=== PATIENT | male | born 1985 | race Caucasian/White ===

== ENCOUNTER 2025-02-24 09:54 | Outpatient (REF) | payer OTHER, SELFPAY ==
[2025-02-24 15:30] LABS: Alanine Aminotransferase 130 U/L (0-40); Albumin Level 4.8 g/dL (3.5-5.0); Alkaline Phosphatase 67 U/L (39-117); Anion Gap 12 (12-20); Aspartate Amino Transferase 73 U/L (5-37); Blood Urea Nitrogen 12 mg/dL (9-16); Calcium 9.5 mg/dL (8.4-10.2); Carbon Dioxide 23 mmol/L (22-29); Chloride 108 mmol/L (96-108); Cholesterol 274 mg/dL (<200); Estimated Glomerular Filt Rate > 60; HDL Cholesterol 35 mg/dL (>40); Potassium 4.4 mmol/L (3.3-5.1); Sodium 139 mmol/L (135-145); Total Protein 7.2 g/dL (6.5-8.0); Triglycerides 622 mg/dL (<150)
[2025-02-24 15:59] LABS: Folate 7.9 ng/mL (> or = 4.0); Vitamin B12 782 pg/mL (200-900)
== END 2025-02-24 09:55 | disposition home or self-care (01) ==
LOC: HO.WFDLDS 09:54
PROVIDERS: PCP Nurse Practitioner Family; Visit Provider Nurse Practitioner Family
DX: Z00.00 Encounter for general adult medical examination without abnormal findings (principal); Z13.31 Encounter for screening for depression; Z13.39 Encounter for screening examination for other mental health and behavioral disorders; Z13.1 Encounter for screening for diabetes mellitus; Z13.6 Encounter for screening for cardiovascular disorders
CPT/HCPCS: 36415; 80053; 80061; 82306; 82607; 82746; 83036; 96127

== ENCOUNTER 2025-02-24 09:54 | Outpatient (AMB) | payer BC, SELFPAY ==
--- NOTE | 2025-02-24 09:58 | A.OFFPC_ITS ---
Vital Signs 02/24/25 10:04 Height 5 ft 7 in Weight 213 lb 8 oz BMI 33.4 BP 120/70 Blood Pressure Location Lt brachial Position Sitting Respiration 12 Pulse 89 Pulse Source Pulse Oximeter Temp 97.3 F Temp Source Oral Pulse Oximetry (%) 99 Oxygen Delivery Method Room Air Intake Visit Reasons: CPE Intake Note: New patient to [facility] and cpe. Super[employer] Required: No Allergies No Known Allergies Allergy (Verified 02/24/25 10:09) Medication List - Last Reviewed 02/24/25 by Laz Gipson MA bupropion HCl XL 150 mg PO QAM dextroamphetamine-amphetamine 10 mg 1 tab PO BID quetiapine ER 50 mg PO BEDTIME quetiapine ER 200 mg PO BEDTIME Tobacco use date assessed: 02/24/25 Dental Screening Dental Screen Date: 02/24/25 Did you have a dental visit in the last 12 months?: No Did you have a dental problem in the last 6 months where you did not have access to dental care?: No Was dental information given to patient?: Yes HPI HPI Comments History of Present Illness Details 39 y/o M with ADHD, obesity, Bipolar 2, fhx colon ca (MGM) Surgery: none Family: MGM cancer colon & DM CKD cirrhosis HTN( ); Mom w/ cardiac arrythmia and HLD; Dad HLD and asthma; MGF heart attack/stroke; PGF asthma, prostate ca; PGM arthritis; 2 younger sisters alive and well; 2 boys and 1 girl alive well (17, 15, 10). 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 - He is currently prescribed quetiapine for this condition. - His medications are managed by a cmi nikki at [facility], with whom he has contact approximately every three months. - He reports his symptoms are well-contr olled with the current medication regimen. Attention-Deficit/Hyperactivity Disorder (ADHD): - The patient has a history of ADHD. - He is currently taking amphetamine (Ad derall) and bupropion for this condition. - These medications are prescribed by [place] [facility] provider. Obesity: - The patient has a past medical history of obesity with a BMI of 33.4. Past Medical History - Bipolar II Disorder, managed with quet iapine. - Attention-Deficit/Hyperactivity Disord er (ADHD), managed with amphetamine and bupropion. - Obesity, with a BMI of 33.4. - History of sometimes feeling weak or f aint with blood draws. - No known allergies to medications. Past Surgical History - The patient denies any history of surg eries. Family History - Maternal grandmother: ; had a history of colon cancer, thyroid cancer, diabetes, kidney disease, cirrhosis, and high blood pressure. - Mother: History of arrhythmia and high cholesterol. - Father: History of high cholesterol an d asthma. - Maternal grandfather: Alive; history o f a heart attack or stroke. - Paternal grandfather: Alive; history o f asthma and prostate cancer. - Paternal grandmother: Alive; history o f arthritis. - Siblings: Two younger sisters who are healthy. 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 - Family Status: He lives with his and three children, ages 17, 15, and 10. Review of Systems - Constitutional: Reports occasionally f eeling weak or faint with blood draws. - Psychiatric: Reports bipolar disorder is well-controlled with medication. - Eyes: Denies any problems or concerns with vision and does not wear corrective lenses. - Skin: Denies any concerns with his ski n. - Gastrointestinal: Reports normal bowel function. - Genitourinary: Reports normal bladder function and denies any testicular problems or concerns. - Musculoskeletal: Denies any issues wit h his feet. - Allergic/Immunologic: Denies any medic ation allergies. Physical Exam General: Well developed, well nourished, in no acute distress. Appears stated age. Head: Normocephalic, atraumatic. Eyes: Pupils are equal, round and reactive to light and accommodation. Conjunctivae are clear. Scleras nonicteric bilat. Vision grossly normal. Ears: TMs clear AU, EACS WNL Nose: Patent, without discharge. Neck: No carotid bruit bilat. Supple, no adenopathy or thyromegaly. Breast: Edu on SBE Lungs: Clear to auscultation bilaterally. No rales, rhonchi or wheeze noted. Good air flow in all siegel. Heart: Regular rate and rhythm. No murmurs, click, rubs or gallops are noted. Abdomen: Bowel sounds present in all quadrants. The abdomen is soft, nontender, with no masses or organomegaly noted. No hernias are noted. : Deferred. Reviewed ILA & recommendations Pulses: Peripheral pulses are equal and palpable bilaterally. Extremities: No clubbing, cyanosis nor edema is noted. Neurologic: Gait and station normal. Cranial Nerves 2-12 intact. Motor strength grossly symmetrical and intact. No sensory loss. Balance normal. Skin: No rashes, ulcers, or lesions noted. Turgor is good. Skin color is good. Hair and nails are without abnormalities. Psych: Normal eye contact, affect and mood appropriate, and normal interactions. Patient is alert and appropriate to context. Results - Immunizations: Tdap vaccination docume nted in 2018. - Labs: Bloodwork was ordered but result s are pending. Medical Decision Making The patient is a 39-year-old male with a history of bipolar II disorder, ADHD, and obesity, who presents to [facility] care after a 10-year lapse. His psychiatric conditions are stable on his current medication regimen, which is managed by an outside provider. The primary focus of this visit is health maintenance and preventative screening. Given his family history of cardiovascular disease, diabetes, and cancer, along with his personal history of obesity, screening for hyperlipidemia and diabetes is warranted. Routine wellness labs, including a complete metabolic panel and vitamin levels, are also indicated. His Tdap immunization is current. Physical examination was unremarkable. The plan is to review lab results via the patient portal and schedule a follow-up in one year, unless abnormal results necessitate an earlier visit. The patient was instructed on the use of the [employer] jatinder for future communication. Plan Health Maintenance - Recommended and ordered laboratory scr eening, including a cholesterol panel, diabetes screen, kidney and liver function tests, vitamin B12, and vitamin D. - Lab results will be communicated via [employer] patient portal. - Plan to follow up in one year for an a nnual physical, or sooner if lab results are abnormal. - Confirmed Tdap vaccination is up to da te (last administered in 2018). - Offered influenza vaccination. - Instructed the patient on enrolling in and using the [employer] patient portal for communication and accessing results. 1. Bipolar Ii Disorder - The patient reports that his symptoms are well-controlled with his current medication, quetiapine. - He [facility]. - No changes were made to his psychiatri c medication regimen at this visit. 2. Attention-Deficit/Hyperactivity Disor nikki (Adhd) - The patient is managed on amphetamine and bupropion. - He will continue to follow with his [facility] provider for medication management. - No changes were made to his medication at this visit. 3. Obesity - The patient has a history of obesity w ith a BMI of 33.4. - General health screening labs were ord ered, which will provide insight into metabolic health. Patient Instructions - Please stop at the front desk team member to sched ule your next appointment for a physical in one year. - After checking out, please go to the l ab to have your blood drawn for the tests we discussed. - To help with your discomfort, please l et the laborer drying department know that you prefer not to look at the needle or blood during the draw. - You will receive an email to sign up f or our patient portal, called [employer]. Please open the email and follow the steps to create your account. This will be our main way of communicating. - Your lab results will be sent to you t hrough the [employer] portal. We will let you know if you need to come back sooner than one year. - If you need your work form filled out, you can upload it as a file to the patient portal. - Use the messaging feature in the [employer] jatinder to contact our office with any questions, to request an appointment, or if you feel sick. - RTO 1 year CPE sooner PRN Consent The patient verbally consented to undergoing blood tests for cholesterol and diabetes screening after a discussion of the rationale for testing. Patient was informed and verbally consented to the use of an ambient scribe for clinic note documentation during this visit. An additional 15 minutes was spent addressing the problem(s) noted at todays visit. This includes time spent before the visit reviewing the chart, time spent during the visit, and time spent after the visit on documentation reviewing laboratory results, diagnostic imaging, medications, performing a medically necessary evaluation, counseling on diagnoses, care coordination, ordering appropriate tests, ordering appropriate medications, review of tests performed by other providers, reporting test results with the patient, communication with other healthcare providers. [facility] Medical History (Updated 02/24/25 @ 10:28 by Tootie Serrato [facility]) Anxiety and depression Asthma Bipolar 1 disorder GERD (gastroesophageal reflux disease) High blood cholesterol NAFLD (nonalcoholic fatty liver disease) Surgical History (Updated 02/24/25 @ 10:08 by Laz Gipson MA) No pertinent past surgical history Family History (Updated 02/24/25 @ 10:10 by Laz Gipson MA) Father Asthma Paternal Grandfather Asthma Cancer Maternal Grandmother HTN (hypertension) High blood cholesterol Diabetes Cancer Maternal Grandfather HTN (hypertension) High blood cholesterol Mother High blood cholesterol Social History (Updated 02/24/25 @ 10:07 by Laz Gipson MA) Household Members: Spouse and Children Both parents involved: No Caregiver staying overnight: Yes Housing: Apartment Are you a primary skin care specialist to a significant other at home: Yes Do you presently have visiting nurse or other home services: No 75 years or older and lives alone: No Alcohol intake: current Alcohol intake frequency: a few times a month Patient Tobacco Use Status: Never used Tobacco e-Cigarette/Vaping Use: Never Used Second Hand Smoke Exposure: No service: No Current occupational status: employed 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 1. Little interest or pleasure in doing things: not at all 2. Feeling down, depressed, or hopeless: not at all 3. Trouble falling or staying asleep, or sleeping too much: not at all 4. Feeling tired or having little energy: not at all 5. Poor appetite or overeating: not at all 6. Feeling bad about yourself - or that you are a failure or have let yourself or your family down: not at all 7. Trouble concentrating on things, such as reading the newspaper or watching television: not at all 8. Moving or speaking so slowly that other people could have noticed. Or the opposite - being so fidgety or restless that you have been moving around a lot more than usual: not at all 9. Thoughts that you would be better off or of hurting yourself in some way: not at all Total score: 0 Depression Screening Interpretation: Negative Depression Screening Done: Yes 19374 - PHQ-9 Billing: Yes Source: Developed by Drs. Ricardo Hendricks, Yumiko Pozo, Fredy Livingston and colleagues, with an educational chelsea from [employer]. Thrive Questionnaire Date Thrive assessed: 02/24/25 I am a: Patient What is your living situation today?: I have a steady place to live Within the past 12 months, did the food you bought not last and you didn't have the money to get more?: Never true Within the past 12 months, did you worry whether your food would run out before you got money to buy more?: Never true Do you have trouble paying for medicines?: No Do you have trouble getting transportation to medical appointments?: No Do you have trouble paying your heating and electricity bill?: No Do you have trouble taking care of your child, family member or friend?: No Do you have trouble with day-to-day activities such as bathing, preparing meals, shopping, managing finances, etc.?: No Are you currently unemployed and looking for a job?: No Are you interested in more education?: Yes Please select the resources that you would like help with: None Currently or been in a relationship where the following occur: No concerns reported THRIVE Score: 0 AUDIT C Alcohol Use Questionnaire (AUDIT-C) 1. How often do you have a drink containing alcohol?: Monthly or less 2. How many drinks containing alcohol do you have on a typical day when you are drinking?: 1 or 2 3. How often do you have six or more drinks on one occasion?: Less than monthly Total Score: 2 Score Reviewed/Action Taken: Yes LUISA-7 AMB Questionnaire LUISA-7 Date LUISA - 7 assessed: 02/24/25 Feeling nervous, anxious, or on edge: 1 = Several days Not being able to stop or control worryin = Several days Worrying too much about different things: 1 = Several days Trouble relaxin = Several days Being so restless that it is hard to sit still: 0 = Not at all Becoming easily annoyed or irritable: 1 = Several days Feeling afraid as if something awful might happen: 0 = Not at all Total LUISA-7 score (0-4 normal; 5-9 mild; 10-14 moderate; 15-21 severe): 5 Source: Developed by Drs. Ricardo Hendricks, Yumiko Pozo, Fredy Livingston and colleagues, with an educational chelsea from [employer]. LUISA-7 Assessment Billing LUISA-7 Assessment Tool: LUISA-7 Assessment 38902 Physical exam (Primary Care) Vital Signs: Last Vital Signs Temp 97.3 F 02/24/25 10:04 Pulse 89 02/24/25 10:04 Resp 12 02/24/25 10:04 BP 120/70 02/24/25 10:04 Pulse Ox 99 02/24/25 10:04 Oxygen Delivery Method Room Air 02/24/25 10:04 BMI result Body Mass Index 33.4 BMI Assessment/Plan discussion: High BMI High, discussed plan: lifestyle Tobacco/Smoking Status: Tobacco use Status Tobacco use date assessed 02/24/25 02/24/25 10:01 Patient Tobacco Use Status Never used Tobacco 02/24/25 10:07 e-Cigarette/Vaping Use Never Used 02/24/25 10:07 PHQ-9: PHQ-9 Score PHQ-9: Total score 0 02/24/25 10:01 Depression Screening Interpretation: Negative Thrive Assessment: Date of Thrive Assessment Date Thrive assessed 02/24/25 02/24/25 10:01 Currently or been in a relationship where the following occur: No concerns reported Coding Level of Care Code New Pt Level 2 (62131) New Pt Prev Care 18-39yr(37461 Diagnoses Encounter to establish care with new provider Z76.89 Attention deficit hyperactivity disorder (ADHD), predominantly inattentive type F90.0 Attention deficit-hyperactivity disorder type: predominantly inattentive Bipolar 2 disorder F31.81 Obesity (BMI 30-39.9) E66.9 Influenza vaccination declined Z28.21 Family history of colon cancer Z80.0 Family history of prostate cancer Z80.42 Adult general medical exam Z00.00 Laboratory exam ordered as part of routine general medical examination Z00.00 Additional Codes LUISA-7 Assessment Billing - LUISA-7 Assessment Tool: LUISA-7 Assessment 14907 ([id number]) PHQ-9 - 16275 - PHQ-9 Billing: Yes ([id number]) Assessment & Plan Assessment & Plan (1) Encounter to establish care with new provider: Code(s): Z76.89 - Persons encountering health services in other specified circumstances (2) ADHD: Comment: managed by outside prescriber Code(s): F90.9 - Attention-deficit hyperactivity disorder, unspecified type Category: Medical Qualifiers: Attention deficit-hyperactivity disorder type: predominantly inattentive Qualified Code(s): F90.0 - Attention-deficit hyperactivity disorder, predominantly inattentive type (3) Bipolar 2 disorder: Comment: managed by outside prescriber Code(s): F31.81 - Bipolar II disorder Category: Medical (4) Obesity (BMI 30-39.9): Code(s): E66.9 - Obesity, unspecified Category: Medical (5) Influenza vaccination declined: Onset Date: ~02/24/25 Code(s): Z28.21 - Immunization not carried out because of patient refusal Category: Medical (6) Family history of colon cancer: Code(s): Z80.0 - Family history of malignant neoplasm of digestive organs Category: Medical (7) Family history of prostate cancer: Code(s): Z80.42 - Family history of malignant neoplasm of prostate Category: Medical (8) Adult general medical exam: Onset Date: ~02/24/25 Code(s): Z00.00 - Encounter for general adult medical examination without abnormal findings Category: Medical (9) Laboratory exam ordered as part of routine general medical examination: Code(s): Z00.00 - Encounter for general adult medical examination without abnormal findings Category: Medical Plan . Orders: Orders Hemoglobin A1c Today Z00.00 - Encounter for general adult medical examination without abnormal findings Comprehensive Met. Panel Today Z00.00 - Encounter for general adult medical examination without abnormal findings Vitamin B12 and Folate Today Z00.00 - Encounter for general adult medical examination without abnormal findings Vitamin D 25-OH Total Today Z00.00 - Encounter for general adult medical examination without abnormal findings Lipid Panel Today Z00.00 - Encounter for general adult medical examination without abnormal findings Patient Instructions: Walk-In Care (Urgent Care): We Make it Easy Walk-in for urgent medical issues such as: ? Seasonal Allergies ? Insect Bites ? Cough ? Diarrhea ? Acute Asthma Attacks ? Back, Knee or Joint Pain ? Ear Infection ? Fever without a Rash ? Headaches ? Nausea ? [place] Eye, Rash or Skin Irritation ? Sore Throat ? Sports Physicals ? Vomiting Most insurances are accepted. Patients do not need to be part of the [facility] to seek care at the walk-in clinic. Locations [address], [place] Open Monday through Monday 8am-5pm *Hours may vary due to staffing availability. To confirm Walk-In Care hours please call. [address] [place] [address] ? [phone] [facility] Walk-In Care in [place] provides services to ages 18 and over. Open Monday-Monday: 7 a.m. to 5 p.m. and Monday: 9 a.m. to 3 p.m.* *Hours may vary due to staffing availability. To confirm Walk-In Care hours in [place], please call [phone]. [address] [place] [address] ? [phone] [facility] Walk-In Care in [place] provides services to ages 12 and over. Open Monday-Monday: 8 a.m. to 5 p.m. Hours may vary due to staffing availability. To confirm Walk-In Care hours in [place], please call [phone]. LABORATORY SERVICES: [facility] Lab ? Primary Location [address] [place] [address] Monday through Monday 6:00 AM ? 5:00 PM Monday 7:00 AM ? 11:00 AM* [phone] The [facility] Lab is centrally located near the front entrance of the [facility] for easy outpatient access. Convenient parking is provided for outpatients. *Hours may vary due to staffing availability. To confirm Laboratory hours for any location, please call [phone]. Offsite Location For your convenience, we offer offsite laboratory draw stations at the following locations: [address] [place] [address] ? [address], [address] Monday through Monday 7:30 AM ? 1:00 PM* [phone] *Hours may vary due to staffing availability. To confirm Laboratory hours for any location, please call [phone]. [place] ? [address] Monday through Monday 6:00 AM ? 3:30 PM* Monday 6:30 AM ? 3 PM* [phone] *Hours may vary due to staffing availability. To confirm Laboratory hours for any location, please call [phone]. [address] [facility] Monday through Monday 7:30 AM ? 4:00 PM* [phone] *Hours may vary due to staffing availability. To confirm Laboratory hours for any location, please call [phone] [facility] Monday through 9:00 AM ? 4:00 PM* *Hours may vary due to staffing availability. To confirm Laboratory hours for any location, please call [phone]. Appointments are not necessary. Walk-ins are welcome. Like all the departments throughout the [facility], our Lab undergoes freque nt reviews to ensure the quality and accuracy of test results, and our staff takes special pride in its status as a nationally accredited facility. Patient Portal: [facility] ONE PATIENT. ONE RECORD. BETTER CARE. [facility] has a fully integrated, cutting- edge mobile electronic health information system that has revolutionized the way we care for our patients and manage our organization. This system improves communication and coordination enabling us to provide safe, higher-quality care, and an overall positive experience for staff and patients. Our first priority, as always, is to deliver the highest quality care possible. The system is running in the background supporting that priority. This portal is for all [facility] services and practices. If you are experiencing any technical difficulties with enrolling or logging into the Patient Portal please complete the [facility] Patient Portal Technical Support Form. [facility] now offers a new secure on-line interactive tool for patients to review their health information ? ?Patient Portal. This interactive web portal will enable patients and their families to take an active role in their care by providing easy, secure access to their health information via the internet. The Patient Portal provides patients with instant access to their health information, including laboratory results, medications, allergies, demographic information, visit history, and more. In addition to managing their own care, parents and health care proxies with authorized consent will appreciate the ability to access the records of those individuals for whom they provide care. Please note: if you wish to gain access (Proxy) to another patient?s portal, you will be required to come to the Medical Records Department in person at [facility]. Both the patient giving proxy access and the proxy will need to provide photo identification and complete the appropriate authorization. The Patient Portal also allows track their appointments online. The [facility] Patient Portal also saves patients time by allowing them to submit updates to their demographic and contact information prior to their visits. Portal email notifications will also alert patients to any new activity on their portal, such as test results and new appointments. In order to initially enroll in the [facility] Patient Portal, you will need to enter some required information including the following: * your [facility] Medical Record number * your personal home email address * name * date of Please note: In order to enroll in the [facility] Patient Portal, we need to have your email address on file in your electronic medical record. ?The email address needs to be specific for one person (yourself) in order for your Portal enrollment to be successful. ?You can update your email address in person with our Registration staff when you are registering for a hospital visit. ?Otherwise, you will need to come to the Health Information Management (Medical Records) Department at [facility]. ?We are open from Monday ? Monday from 7:30 a.m. ? 4:30 p.m. ?You will be required to present a photo id. Once you have successfully enrolled in the Patient Portal, you will receive a one-time user id and password for the Portal, sent to your email address. ?This will allow you to log into the Patient Portal within 99 hrs and reset your own logon id and password, and define personal security questions. ?Once your permanent login and password have been set, you can log into the [facility] Patient Portal at any time via the blue button above or from the Portal Logon button on any page of the [facility] website. [facility] and [facility] encourage all of our patients to enroll in Patient Portal as it presents a valuable opportunity for patients and their families to actively participate in their care and stay healthy Welcome to [facility]. ?We look forward to working with you. Health screenings for men You should visit your health care provider regularly, even if you feel healthy. The purpose of these visits is to: Screen for medical issues Assess your risk for future medical problems Encourage a healthy lifestyle Update vaccinations and other preventive care services Help you get to know your provider in case of an illness Information Even if you feel fine, you should still see your provider for regular checkups. These visits can help you avoid problems in the future. For example, the only way to find out if you have high blood pressure is to have it checked regularly. High blood sugar and high cholesterol level also may not have any symptoms in the early stages. Simple blood tests can check for these conditions. There are specific times when you should see your provider or receive specific health screenings. The [place] Preventive Services Task Force publishes a list of recommended screenings. Below are screening guidelines for men ages 40 to 64. BLOOD PRESSURE SCREENING Have your blood pressure checked at least once every year. Watch for blood pressure screenings in your area. Ask your provider if you can stop in to have your blood pressure checked. Ask your provider if you need your blood pressure checked more often if: You have diabetes, heart disease, kidney problems, or are overweight or have certain other health conditions You have a first-degree relative with high blood pressure You are Black Your blood pressure top number is from 120 to 129 mm Hg, or the bottom number is from 70 to 79 mm Hg If the top number is 130 mm Hg or greater or the bottom number is 80 mm Hg or greater, this is considered stage 1 hypertension. Schedule an appointment with your provider to learn how you can lower your blood pressure. Effects of age on blood pressure CHOLESTEROL SCREENING Cholesterol screening should begin at age 35 for men with no known risk factors for coronary heart disease. Repeat cholesterol screening should take place: Every 5 years for men with normal cholesterol levels More often if changes occur in lifestyle (including weight gain and diet) More often if you have diabetes, heart disease, kidney problems, or certain other conditions COLORECTAL CANCER SCREENING If you are under age 45, talk to your provider about getting screened. You may need to be screened if you have a strong family history of colon cancer or polyps. Screening may also be considered if you have risk factors such as a history of inflammatory bowel disease or polyps. If you are age 45 to 75, you should be screened for colorectal cancer. There are several screening tests available: A stool-based fecal occult blood (gFOBT) or fecal immunochemical test (FIT) every year A stool sDNA test every 1 to 3 years Flexible sigmoidoscopy every 5 years or every 10 years with stool testing FIT done every year CT colonography (virtual colonoscopy) every 5 years Colonoscopy every 10 years You may need a colonoscopy more often if you have risk factors for colorectal cancer, such as: Ulcerative colitis A personal or family history of colorectal cancer A history of growths in your colon called adenomatous polyps DENTAL EXAM Go to the dentist once or twice every year for an exam and cleaning. Your dentist will evaluate if you have a need for more frequent visits. DIABETES SCREENING All adults who do not have risk factors for diabetes should be screened starting at age 35 and repeated every 3 years. If you have other risk factors for diabetes, such as a first degree relative with diabetes, overweight or obesity, high blood pressure, prediabetes, or a history of heart disease, you may be tested more often. If you are overweight and have other risk factors, such as high blood pressure and are planning to become , screening is recommended. EYE EXAM Have an eye exam every 2 to 4 years ages 40 to 54 and every 1 to 3 years ages 55 to 64. Your provider may recommend more frequent eye exams if you have vision problems or glaucoma risk. Have an eye exam that includes an examination of your retina (back of your eye) at least every year if you have diabetes. IMMUNIZATIONS Commonly needed vaccines include: Flu shot: get one every year COVID-19 vaccine: ask your provider what is best for you Tetanus-diphtheria and acellular pertussis (Tdap) vaccine: have as one of your tetanus-diphtheria vaccines if you did not receive it as an adolescent Tetanus-diphtheria: have a booster (or Tdap) every 10 years Varicella vaccine: receive 2 doses if you never had chickenpox or the varicella vaccine and were born in 1980 or after Hepatitis B vaccine: receive 2, 3, or 4 doses, depending on your exact circumstances, if you did not receive these as a child or adolescent, until age 59 Shingles (herpes zoster) vaccine: at or after age 50 Ask your provider if you should receive other immunizations, especially if you have certain medical conditions, such as diabetes or are at increased risk for some diseases such as pneumonia. INFECTIOUS DISEASE SCREENING Screening for hepatitis C: all adults ages 18 to 79 should get a one-time test for hepatitis C. Screening for human immunodeficiency virus (HIV): all people ages 15 to 65 should get a one-time test for HIV. Depending on your lifestyle and medical history, you may need to be screened for infections such as syphilis, chlamydia, and other infections. LUNG CANCER SCREENING You should have an annual screening for lung cancer with low-dose computed tomography (LDCT) if: You are age 50 to 80 years AND You have a 20 pack-year smoking history AND You currently smoke or have quit within the past 15 years OSTEOPOROSIS SCREENING If you are age 50 to 64 and have risk factors for osteoporosis, you should discuss screening with your provider. Risk factors can include long-term steroid use, low body weight, smoking, heavy alcohol use, having a fracture after age 50, or a family history of hip fracture or osteoporosis. Osteoporosis PHYSICAL EXAM All adults should visit their provider from time to time, even if they are healthy. The purpose of these visits is to: Screen for diseases Assess risk of future medical problems Encourage a healthy lifestyle Update vaccinations and other preventive care services Maintain a relationship with a provider in case of an illness Your height, weight, and body mass index (BMI) should be checked at every exam. During your exam, your provider may ask you about: Depression and anxiety Diet and exercise Alcohol and tobacco use Safety, such as use of seat belts and smoke detectors Your medicines and risk for interactions PROSTATE CANCER SCREENING If you're 55 through 69 years old, before having the test, talk to your provider about the pros and cons of having a PSA test. Ask about: Whether screening decreases your chance of dying from prostate cancer. Whether there is any harm from prostate cancer screening, such as side effects from testing or overtreatment of cancer when discovered. Whether you have a higher risk of prostate cancer than others. If you are age 55 or younger, screening is not generally recommended. You should talk with your provider about if you have a higher risk for prostate cancer. Risk factors include: Having a family history of prostate cancer (especially a brother or father) Being If you choose to be tested, the PSA blood test is repeated over time (yearly or less often), though the best frequency is not known. Prostate examinations are no longer routinely done on men with no symptoms. Prostate cancer SKIN EXAM Your provider may check your skin for signs of skin cancer, especially if you're at high risk. People at high risk include those who have had skin cancer before, have close relatives with skin cancer, or have a weakened immune system. TESTICULAR EXAM The [place] Preventive Services Task Force (USPSTF) now recommends against performing testicular self-exams. Doing testicular self-exams has been shown to have little to no benefit.
[2025-02-24 10:04] VITALS: BP 120/70; PULSE 89; RESP 12; TEMP 36.3; O2SAT 99; BMI 33.4
== END 2025-02-24 10:22 | disposition home or self-care (01) ==
LOC: HO.HMCFM 09:55
PROVIDERS: PCP Nurse Practitioner Family; Visit Provider Nurse Practitioner Family
DX: Z00.00 Encounter for general adult medical examination without abnormal findings (principal); F31.81 Bipolar II disorder; E66.9 Obesity, unspecified; Z68.33 Body mass index [BMI] 33.0-33.9, adult; F90.0 Attention-deficit hyperactivity disorder, predominantly inattentive type; Z28.21 Immunization not carried out because of patient refusal; Z80.0 Family history of malignant neoplasm of digestive organs; Z80.42 Family history of malignant neoplasm of prostate